=== PATIENT | male | born 1995 | race Caucasian/White ===

== ENCOUNTER 2024-01-01 16:56 | Emergency (ER) | payer OTHER, SELFPAY ==
[2024-01-01 17:20] VITALS: BP 136/82; PULSE 71; RESP 16; TEMP 36.8; O2SAT 100
--- NOTE | 2024-01-01 19:49 | ED.WOUNDLAC ---
HPI - Wound/Laceration General Chief Complaint: Wound/Laceration Stated Complaint: Thumb Laceration Time Seen by Provider: 01/01/24 19:40 Source: patient Mode of arrival: Ambulatory Limitations: language barrier History of Present Illness HPI narrative: Patient is a 28-year-old left-hand dominant male. Is [place]ic-speaking only. The translation line was used during this interview. Is here for evaluation of a cut to his right thumb. He states that it occurred while he was at work. He cut it while irma. No other injuries from the event. Review of Systems Review of Systems Narrative: See HPI Patient History Social History Smoking Status: Never smoker Smoking Status: Never smoker Substance Use Type: does not use Exam Initial Vital Signs Initial Vital Signs: Vital Signs Temperature 98.2 F 01/01/24 17:20 Pulse Rate 71 01/01/24 17:20 Respiratory Rate 16 01/01/24 17:20 Blood Pressure 136/82 01/01/24 17:20 Pulse Oximetry 100 01/01/24 17:20 Oxygen Delivery Method Room Air 01/01/24 17:20 Skin Other: 3 cm long laceration on the volar aspect of the right thumb distal to the DIPJ joint. Neuro Sensory Exam: no sensory deficits noted Procedures Laceration Repair Laceration 1: Site: other (Thumb) Side (If applicable): right Size (cm): 3 Description: linear Depth: simple, single layer Local Anesthetic: lidocaine 1% (Digital block) Pre-repair: wound explored, irrigated extensively and deep structures intact Skin layer closed with: nylon Skin layer suture size: 4-0 Number of sutures: 6 Technique: simple, interrupted Nerve Block Nerve Block 1: Local Anesthetic: lidocaine 1% Amount of anesthesia used (mL): 4 Side: right Nerve Blocks: digital Procedure Successful: Yes Patient Tolerated Procedure: Well Complications: none Course Orders Ordered: Discontinued Medications Bacitracin (Bacitracin Oint 0.9 Gm Pckt) 1 applic TOP NOW ONE Stop: 01/01/24 20:58 Last Admin: 01/01/24 21:03 Dose: 1 applic Documented By: Lidocaine HCl (Lidocaine 1% 20 Ml) 20 ml INJ INTRA-OP ONE Stop: 01/01/24 19:50 Vital Signs Vital signs: Vital Signs - 8 hr 01/01/24 21:14 Temperature 98.4 F Pulse Rate 78 Respiratory Rate 18 Blood Pressure 131/64 Pulse Oximetry 98 Oxygen Delivery Method Room Air MDM - Wound/Laceration MDM Narrative Medical decision making narrative: Neurovascularly intact. Laceration was closed as described above. Patient was given care instructions and return precautions and follow-up instructions. He expressed understanding and agreement with the plan. Discharge Plan Departure Patient Disposition: Home Clinical Impression: Laceration Instructions: DI for Laceration Repair Activity Restrictions/Additional Instructions: Los puntos deber?n retirarse en 7 a 10 d?as. Si regresa al trabajo mant?ngalo cubierto con melissa venda. Despu?s de 24 horas puedes quitarte el vendaje y lavarte las deven con agua y jab?n. Regrese al departamento de emergencias si presenta nuevos s?ntomas. Referrals: Miscellaneous,Doctor, [Primary Care Provider] - Stand Alone Forms: Patient Portal/API
[2024-01-01] MEDS: BACITRACIN OINT 0.9 GM PCKT 1 APPLIC TOP (21:03)
[2024-01-01 21:14] VITALS: BP 131/64; PULSE 78; RESP 18; TEMP 36.9; O2SAT 98
== END 2024-01-01 21:16 | disposition home or self-care (01) ==
PROVIDERS: Emergency Provider Emergency Medicine
DX: S61.011A Laceration without foreign body of right thumb without damage to nail, initial encounter (principal); W45.8XXA Other foreign body or object entering through skin, initial encounter
CPT/HCPCS: 12002; 64450; 99282; 99283